=== PATIENT | male | born 1940 | race Caucasian/White ===

== ENCOUNTER → 2016-11-23 | Outpatient (CLI) | payer MEDICARE ==
--- NOTE | 2016-11-23 13:49 | RAD ---
Chest, 2 views, 11/23/2016: History: Malignant melanoma Comparison is made to a study from 10/29/2015. The heart size and pulmonary vascularity are normal. No pulmonary infiltrates are seen. There is no evidence of pleural fluid. IMPRESSION: No acute cardiopulmonary abnormality is detected.
== END | disposition home or self-care (01) ==
LOC: DXRADRC 13:22
PROVIDERS: ATTEND Internal Medicine
DX: Z00.00 Encounter for general adult medical examination without abnormal findings (principal); Z85.820 Personal history of malignant melanoma of skin
CPT/HCPCS: 71020

== ENCOUNTER → 2019-05-22 | Outpatient (CLI) | payer MEDICARE ==
--- NOTE | 2019-05-22 16:27 | RAD ---
EXAM: Lumbar spine CT without contrast. HISTORY: Radiculopathy. TECHNIQUE: Computed tomographic images of the lumbar spine were obtained without contrast. Multiplanar reformatting was performed. *One or more of the following individualized dose reduction techniques were utilized for this examination: 1. Automated exposure control. 2. Adjustment of the mA and/or kV according to patient size. 3. Use of iterative reconstruction technique. COMPARISON: None. FINDINGS: There is S-shaped lumbar scoliosis, with dextrocurvature centered at L2-L3 and levocurvature centered at L4-L5. There is no significant listhesis. There is degenerative endplate remodeling with disc space narrowing, Schmorl's node formation, osteophytosis and vacuum phenomenon predominantly along the left aspects of L2-L3 and L3-L4 and right aspect of L5-S1. This corresponds with the levels of maximum scoliotic curvature. There is suspected bone demineralization. There are laminectomy changes at L3-L4. There is no fracture or suspicious osseous lesion. There are few benign bone islands. There is degenerative spurring and subchondral sclerosis involving the right greater than left sacroiliac joints. There is a suspected small cyst within the upper pole of the left kidney. There is colonic diverticulosis. At L1-L2, there is a disc bulge and endplate remodeling. There is mild left facet arthropathy. There is mild left greater than right foraminal stenosis. At L2-L3, there is a left lateral predominant disc bulge and endplate osteophytosis. There is mild left facet arthropathy. There is mild right and severe left foraminal stenosis. At L3-L4, there is a left lateral predominant disc bulge and endplate osteophytosis. There is mild bilateral facet arthropathy. There are laminectomy changes. There is mild right and severe left foraminal stenosis. At L4-L5, there is a disc bulge and endplate remodeling. There is mild bilateral facet arthropathy. There is moderate right foraminal stenosis. At L5-S1, there is a right lateral predominant disc bulge and endplate osteophytosis. There is moderate right facet arthropathy. There is severe right foraminal stenosis. IMPRESSION: 1. Multilevel degenerative change involving the lumbar spine, described in detail above. This is associated with foraminal stenosis at the aforementioned levels. 2. Laminectomy changes at L3-L4. 3. Lumbar scoliosis. Electronically signed by: Sarah Quiros MD (05/22/2019 4:24 PM) [facility] [place]
== END | disposition home or self-care (01) ==
LOC: CT 10:01
PROVIDERS: ATTEND Psychiatry & Neurology Neurology
DX: M51.17 Intervertebral disc disorders with radiculopathy, lumbosacral region (principal); M12.88 Other specific arthropathies, not elsewhere classified, other specified site; M48.07 Spinal stenosis, lumbosacral region; K57.30 Diverticulosis of large intestine without perforation or abscess without bleeding; M41.86 Other forms of scoliosis, lumbar region
CPT/HCPCS: 72131

== ENCOUNTER → 2019-06-29 | Outpatient (CLI) | payer MEDICARE ==
[~2019-06-29] MED LIST: ATOR40TA PO; DICL50TA2 PO; FINA1TAB3 PO; GABA600T7 PO; TAMS0.4C97 PO
[2019-06-29 09:41] VITALS: BP 134/73
== END ==
LOC: SURG 09:02
PROVIDERS: ATTEND Anesthesiology Pain Medicine
DX: M54.16 Radiculopathy, lumbar region (principal); M54.5 Low back pain; Z98.890 Other specified postprocedural states
CPT/HCPCS: 99203